=== PATIENT | female | born 1935 | race Caucasian/White ===

== ENCOUNTER 2016-11-05 11:07 | Inpatient (IN) | payer MEDICARE, MEDICAID ==
[~2016-11-05] VITALS: Ht 152.4 cm; Wt 73.5 kg
[2016-11-05] MEDS ORDERED: MORPHINE SULFATE 4 MG/ML CPJ (NOT FOR IM USE) IV ONE (11:45)
[2016-11-05] MEDS ORDERED: ONDANSETRON HCL 4MG/2ML VIAL IV ONE (11:45)
[2016-11-05 12:45] LABS: BASOPHILS % 0.6 % (0.0-2.0); EOSINOPHILS % 1.7 % (0.0-5.0); HEMATOCRIT. 33.5 % (36.0-48.0); LYMPHOCYTES % 25.1 % (20.0-50.0); MEAN CORPUSCULAR HEMOGLOBIN 28.4 pg (28.0-32.0); MEAN CORPUSCULAR VOLUME 86.4 fL (81.0-99.0); MEAN PLATELET VOLUME 7.8 fl (7.4-10.4); MONOCYTES % 6.3 % (2.0-8.0); NEUTROPHILS % 66.3 % (40.0-76.0); PLATELET 311 x1000/uL (130-400); RED BLOOD CELL COUNT 3.88 mill/uL (4.2-5.4); RED CELL DISTRIBUTION WIDTH 15.6 % (11.6-14.6)
[2016-11-05 12:52] LABS: PARTIAL THROMBOPLASTIN TIME 25.4 sec (23.4-31.0); PROTHROMBIN TIME 10.9 sec (9.4-11.6)
[2016-11-05 12:57] LABS: CARBON DIOXIDE 26 mEq/L (21-32); CHLORIDE 106 mEq/L (98-107)
[2016-11-05 13:02] LABS: TROPONIN I < 0.02 ng/mL (0.00-0.04)
[2016-11-05 13:03] LABS: CREATINE KINASE MB FRACTION 1.3 ng/mL (0.5-3.6)
[2016-11-05] MEDS ORDERED: CLONIDINE 0.1MG TABLET PO PRN (17:00)
[2016-11-05] MEDS ORDERED: DOCUSATE SODIUM 100MG CAPSULE PO PRN (17:00)
[2016-11-05] MEDS ORDERED: ACETAMINOPHEN 325MG TABLET PO PRN (17:00)
[2016-11-05] MEDS ORDERED: MAGNESIUM/ALUMINUM HYDROXIDE/SIMETHICONE 30ML UDC PO PRN (17:00)
[2016-11-05] MEDS ORDERED: GUAIFENESIN 200MG/10ML SUGAR FREE UDC PO PRN (17:00)
[2016-11-05] MEDS ORDERED: HYDROCODONE/ACETAMINOPHEN 5/325MG TABLET PO PRN (17:00)
[2016-11-05] MEDS ORDERED: NA PHOS,M-B/NA PHOS,DI-BA ENEMA 118ML PR PRN (17:00)
[2016-11-05] MEDS ORDERED: DEXTROSE 50% WATER 50ML SYRINGE IV PRN (18:00)
[2016-11-05 18:04] VITALS: BP 129/47
[2016-11-05] MEDS: ENOXAPARIN 40MG/0.4ML SYR SUBCUT SCH (18:38)
[2016-11-05 20:40] VITALS: BP 136/43
[2016-11-05] MEDS ORDERED: INSULIN LISPRO 100 UNITS/ML SUBCUT SCH (21:00)
[2016-11-05] MEDS: BLOOD SUGAR DIAGNOSTIC STRIP TEST SCH (21:25)
[2016-11-05 23:39] LABS: CREATINE KINASE 88 IU/L (26-192); TROPONIN I < 0.02 ng/mL (0.00-0.04)
[2016-11-06 00:45] VITALS: BP 107/44
[2016-11-06] MEDS ORDERED: DIPHENHYDRAMINE 50MG/ML VIAL IM PRN (01:15)
[2016-11-06 04:00] VITALS: BP 117/48
[2016-11-06] MEDS: BLOOD SUGAR DIAGNOSTIC STRIP TEST SCH ×4 (06:23→21:38)
[2016-11-06] MEDS: PANTOPRAZOLE 40MG DR TABLET PO SCH (06:24)
[2016-11-06 07:00] LABS: BASOPHILS % 0.8 % (0.0-2.0); EOSINOPHILS % 2.7 % (0.0-5.0); HEMATOCRIT. 32.5 % (36.0-48.0); HEMOGLOBIN. 10.7 g/dL (12.0-16.0); LYMPHOCYTES % 45.4 % (20.0-50.0); MEAN CORPUSCULAR HEMOGLOBIN 28.8 pg (28.0-32.0); MEAN CORPUSCULAR VOLUME 87.7 fL (81.0-99.0); MEAN PLATELET VOLUME 8.5 fl (7.4-10.4); MONOCYTES % 6.9 % (2.0-8.0); NEUTROPHILS % 44.2 % (40.0-76.0); PLATELET 314 x1000/uL (130-400); RED CELL DISTRIBUTION WIDTH 15.4 % (11.6-14.6)
[2016-11-06 07:22] VITALS: BP 106/46
[2016-11-06 07:27] LABS: CHLORIDE 103 mEq/L (98-107)
[2016-11-06 07:40] LABS: CARBON DIOXIDE 26 mEq/L (21-32); CREATINE KINASE 82 IU/L (26-192); HDL CHOLESTEROL 35 mg/dL (40-59); LDL CHOLESTEROL 116 mg/dL (5-100); T4 FREE 1.22 ng/dL (0.76-1.46); TROPONIN I < 0.02 ng/mL (0.00-0.04)
[2016-11-06] MEDS: ASPIRIN 81MG EC TABLET PO SCH (09:00)
[2016-11-06] MEDS ORDERED: LANSOPRAZOLE 30MG DR CAPSULE PO SCH (09:00)
[2016-11-06] MEDS: ENOXAPARIN 40MG/0.4ML SYR SUBCUT SCH (09:21)
[2016-11-06] MEDS ORDERED: GLIP5TAB12 PO (10:40)
[2016-11-06] MEDS ORDERED: OMEP20TA2 PO (10:40)
[2016-11-06 11:35] VITALS: BP 102/42
[2016-11-06] MEDS: DOCUSATE SODIUM 100MG CAPSULE PO SCH ×2 (13:19→17:01)
[2016-11-06] MEDS: GLIPIZIDE 5MG TABLET PO SCH (13:19)
[2016-11-06 16:03] VITALS: BP 130/55
[2016-11-06] MEDS: MORPHINE SULFATE 2 MG/ML CPJ (NOT FOR IM USE) IV PRN (17:01)
[2016-11-06 20:07] VITALS: BP 117/47
[2016-11-06] MEDS ORDERED: LACTULOSE 20G/30ML UDC PO PRN (21:00)
[2016-11-07 00:30] VITALS: BP 128/62
[2016-11-07] MEDS: MORPHINE SULFATE 2 MG/ML CPJ (NOT FOR IM USE) IV PRN ×4 (03:12→17:28)
[2016-11-07 04:31] VITALS: BP 112/44
[2016-11-07 06:33] LABS: BASOPHILS % 0.7 % (0.0-2.0); EOSINOPHILS % 1.9 % (0.0-5.0); HEMATOCRIT. 34.1 % (36.0-48.0); HEMOGLOBIN. 11.3 g/dL (12.0-16.0); LYMPHOCYTES % 33.9 % (20.0-50.0); MEAN CORPUSCULAR HEMOGLOBIN 28.9 pg (28.0-32.0); MEAN CORPUSCULAR VOLUME 87.4 fL (81.0-99.0); MEAN PLATELET VOLUME 8.5 fl (7.4-10.4); MONOCYTES % 7.6 % (2.0-8.0); NEUTROPHILS % 55.9 % (40.0-76.0); PLATELET 328 x1000/uL (130-400); RED CELL DISTRIBUTION WIDTH 14.9 % (11.6-14.6)
[2016-11-07] MEDS: PANTOPRAZOLE 40MG DR TABLET PO SCH (06:55)
[2016-11-07] MEDS: BLOOD SUGAR DIAGNOSTIC STRIP TEST SCH ×4 (06:55→21:00)
[2016-11-07 08:02] LABS: CARBON DIOXIDE 26 mEq/L (21-32); CHLORIDE 102 mEq/L (98-107)
[2016-11-07 08:07] VITALS: BP 104/46
[2016-11-07] MEDS: CELECOXIB 200MG CAPSULE PO SCH (09:47)
[2016-11-07] MEDS: ASPIRIN 81MG EC TABLET PO SCH (09:47)
[2016-11-07] MEDS: GLIPIZIDE 5MG TABLET PO SCH (09:47)
[2016-11-07] MEDS: DOCUSATE SODIUM 100MG CAPSULE PO SCH ×2 (09:47→17:25)
[2016-11-07] MEDS: ENOXAPARIN 40MG/0.4ML SYR SUBCUT SCH (09:48)
[2016-11-07 12:10] VITALS: BP 100/49
[2016-11-07 16:10] VITALS: BP 110/45
[2016-11-07 20:00] VITALS: BP 120/54
[2016-11-08] VITALS (7 sets, daily range): BP systolic 97–138; BP diastolic 37–58
[2016-11-08] MEDS: BLOOD SUGAR DIAGNOSTIC STRIP TEST SCH ×4 (06:59→20:55)
[2016-11-08] MEDS: PANTOPRAZOLE 40MG DR TABLET PO SCH (06:59)
[2016-11-08] MEDS: ASPIRIN 81MG EC TABLET PO SCH (09:59)
[2016-11-08] MEDS: DOCUSATE SODIUM 100MG CAPSULE PO SCH ×2 (09:59→17:01)
[2016-11-08] MEDS: ENOXAPARIN 40MG/0.4ML SYR SUBCUT SCH (09:59)
[2016-11-08] MEDS: GLIPIZIDE 5MG TABLET PO SCH (09:59)
[2016-11-08] MEDS: CELECOXIB 200MG CAPSULE PO SCH (09:59)
[2016-11-08] MEDS: MORPHINE SULFATE 2 MG/ML CPJ (NOT FOR IM USE) IV PRN ×2 (10:02→17:02)
[2016-11-08] MEDS ORDERED: DEXTROSE 50% WATER 50ML SYRINGE IV PRN (21:00)
[2016-11-08] MEDS ORDERED: INSULIN LISPRO 100 UNITS/ML SUBCUT SCH (21:00)
[2016-11-09] VITALS (7 sets, daily range): BP systolic 110–142; BP diastolic 40–64
[2016-11-09] MEDS: PANTOPRAZOLE 40MG DR TABLET PO SCH (05:52)
[2016-11-09] MEDS: BLOOD SUGAR DIAGNOSTIC STRIP TEST SCH ×4 (06:21→21:01)
[2016-11-09] MEDS: DOCUSATE SODIUM 100MG CAPSULE PO SCH ×2 (08:32→17:09)
[2016-11-09] MEDS: GLIPIZIDE 5MG TABLET PO SCH (08:32)
[2016-11-09] MEDS: CELECOXIB 200MG CAPSULE PO SCH (08:32)
[2016-11-09] MEDS: ASPIRIN 81MG EC TABLET PO SCH (08:32)
[2016-11-09] MEDS: ENOXAPARIN 40MG/0.4ML SYR SUBCUT SCH (08:32)
[2016-11-09] MEDS ORDERED: TRAM50TA73 PO (09:43)
[2016-11-09 15:21] LABS: CREATINE KINASE 88 IU/L (26-192); TROPONIN I < 0.02 ng/mL (0.00-0.04)
[2016-11-09 15:34] LABS: CREATINE KINASE MB FRACTION 0.8 ng/mL (0.5-3.6)
[2016-11-10 00:28] VITALS: BP 104/51
[2016-11-10 04:36] VITALS: BP 129/51
[2016-11-10] MEDS: PANTOPRAZOLE 40MG DR TABLET PO SCH (06:07)
[2016-11-10] MEDS: BLOOD SUGAR DIAGNOSTIC STRIP TEST SCH ×2 (06:39→11:32)
[2016-11-10] MEDS: CELECOXIB 200MG CAPSULE PO SCH (07:43)
[2016-11-10] MEDS: DOCUSATE SODIUM 100MG CAPSULE PO SCH (07:43)
[2016-11-10] MEDS: ASPIRIN 81MG EC TABLET PO SCH (07:43)
[2016-11-10] MEDS: GLIPIZIDE 5MG TABLET PO SCH (07:43)
[2016-11-10] MEDS: ENOXAPARIN 40MG/0.4ML SYR SUBCUT SCH (07:45)
[2016-11-10 08:00] VITALS: BP 138/50
[2016-11-10 12:20] VITALS: BP 140/58
== END 2016-11-10 12:30 | disposition home or self-care (01) | DRG 74 ==
LOC: ER 11:34 → ENRESERV 12:17 → 6WST 15:19 → EDBEDREQTM 15:21 → EDBEDREQ 15:21
PROVIDERS: ADMIT Hospitalist; ATTEND Hospitalist
DX: G90.8 Other disorders of autonomic nervous system (principal); E11.9 Type 2 diabetes mellitus without complications; E44.1 Mild protein-calorie malnutrition; W18.30XA Fall on same level, unspecified, initial encounter; S92.355A Nondisplaced fracture of fifth metatarsal bone, left foot, initial encounter for closed fracture; I10 Essential (primary) hypertension; S62.009A Unspecified fracture of navicular [scaphoid] bone of unspecified wrist, initial encounter for closed fracture; Y93.89 Activity, other specified; Y92.89 Other specified places as the place of occurrence of the external cause; Y99.8 Other external cause status; Z68.31 Body mass index [BMI] 31.0-31.9, adult
CPT/HCPCS: 29125; 29515; 36415; 70450; 73110; 73200; 73610; 73630; 80053; 80061; 82550; 82553; 82962; 83036; 83735; 83880; 84439; 84443; 84484; 85025; 85610; 85730; 93005; 93306; 93970; 96374; 96375; 97116; 97162; 97166; 97530; 99285; C1893; J1200; J1650; J1815; J2270; J2405